=== PATIENT | female | born 1965 | race Caucasian/White ===

== ENCOUNTER 2017-03-04 08:40 | Inpatient (IN) | payer OTHER ==
[2017-02-14 14:10] VITALS: BMI 33.0
--- NOTE | 2017-02-14 14:40 | PAT Medication Instructions ---
Service Date Feb 14, 2017. Current Home Medication List Cyclobenzaprine Hcl (Flexeril), 10 MG PO BID PRN for RN Diclofenac (Voltaren), 75 MG PO HS Metoprolol Succinate (Toprol Xl), 50 MG PO HS Rizatriptan Benzoate (Maxalt), 10 MG PO UD PRN for RN Venlafaxine Hcl (Venlafaxine Hcl Er), 1 TAB PO HS [Hydrocodone-Apap], 1 TAB PO PRN Medication Instructions For Your Scheduled Surgery - Check with surgeon for instructions: Diclofenac (Voltaren), 75 MG PO HS - Hold the following medications the morning of surgery: Cyclobenzaprine Hcl (Flexeril), 10 MG PO BID PRN for RN - Take the following medications the morning of surgery with a sip of water: Rizatriptan Benzoate (Maxalt), 10 MG PO UD PRN for RN (if needed) [Hydrocodone-Apap], 1 TAB PO PRN (okay to take up to 4 hours prior to surgery if needed) - Take the following medications as scheduled the night before surgery: Venlafaxine Hcl (Venlafaxine Hcl Er), 1 TAB PO HS Rizatriptan Benzoate (Maxalt), 10 MG PO UD PRN for RN (if needed) Metoprolol Succinate (Toprol Xl), 50 MG PO HS Cyclobenzaprine Hcl (Flexeril), 10 MG PO BID PRN for RN (if needed) [Hydrocodone-Apap], 1 TAB PO PRN If you have any questions please call us at [phone] (Julia Hunt PA-C) or [phone] or [phone]
--- NOTE | 2017-02-14 15:39 | DIAGNOSTIC IMAGING REPORT ---
CHEST 2 VIEWS ROUTINE CLINICAL HISTORY: pat preoperative evaluation COMPARISON STUDY: 09/20/2013 FINDINGS: The bones soft tissues and hemidiaphragms are normal. The cardiomediastinal silhouette is normal. The lungs are clear. The pulmonary vasculature is normal. IMPRESSION: Negative chest. Electronically signed by: Shin Das M.D. 02/14/2017 3:37 PM Dictated Date/Time: 02/14/2017 3:36 PM
[2017-02-14 15:45] LABS: URINE APPEARANCE CLEAR (CLEAR); URINE BILIRUBIN NEG (NEG); URINE COLOR YELLOW; URINE NITRITE NEG (NEG); URINE PH 5.5 (4.5-7.5); URINE SPECIFIC GRAVITY 1.024 (1.000-1.030); UROBILINOGEN NEG (NEG)
[2017-02-14 15:46] LABS: MANUAL MICROSCOPIC REQUIRED? NO; REVIEW REQ? NO
[2017-02-14 15:49] LABS: BUN/CREATININE RATIO 13.4 (10-20); CALCIUM 8.7 mg/dl (8.5-10.1); CREATININE 0.82 mg/dl (0.60-1.20); POTASSIUM 3.9 mmol/L (3.5-5.1)
[2017-02-14 15:50] LABS: BASO % 0.6 %; BASO ABS # 0.03 K/uL (0-0.2); COMPLETE YES; EOS % 3.3 %; IG% 0.2 %; LYMPH % 41.7 %; LYMPH ABS # 2.03 K/uL (1.2-3.4); MEAN CELL VOLUME 94.1 fL (80-100); MEAN CORPUSCULAR HEMOGLOBIN 32.2 pg (25-34); MEAN CORPUSCULAR HGB CONC 34.3 g/dl (32-36); MEAN PLATELET VOLUME 10.7 fL (7.4-10.4); MONO % 8.8 %; NEUT % 45.4 %; PLATELET COUNT 265 K/uL (130-400); RED BLOOD COUNT 4.25 M/uL (4.2-5.4); WHITE BLOOD COUNT 4.87 K/uL (4.8-10.8)
[~2017-03-04] VITALS: Ht 162.6 cm; Wt 87.6 kg
[2017-03-04] VITALS (11 sets, daily range): BP systolic 128–158; BP diastolic 72–94; PULSE 84–112; TEMP 36.5–37.6; O2SAT 93–98; Ht 162.6 cm; Wt 87.6 kg
[~2017-03-04 08:40] MED LIST: CEFAZOLIN 2000 MG/60 ML D5W IV SCH; CYCL10TA6 PO; DICL-201 PO; HYDROCODONE-APAP PO; LACTATED RINGER'S 1000ML 1,000 ML IV SCH; METO-217 PO; RIZA10TA18 PO; VENL225T27 PO
[2017-03-04] MEDS ORDERED: FENTANYL CITRATE INJ 50 MCG/1 ML 2 ML VIAL ONE ×3 (10:43→12:44)
[2017-03-04] MEDS ORDERED: MIDAZOLAM HCL 1 MG/ML 2ML VIAL ONE (10:43)
--- NOTE | 2017-03-04 10:48 | History & Physical Bridge Note ---
H&P Re-Evaluation Bridge Note: I have examined the patient, reviewed the History & Physical and in the interval since the performance of the History & Physical I have noted the following changes of clinical significance: No changes noted
--- NOTE | 2017-03-04 10:49 | History and Physical ---
History & Physical Date March 04, 2017. Chief Complaint neck and arm pain History of Present Illness The patient is a 52 year old female with complaints of Additional History Hepatic Disease: No Endocrine Disorder: No Kidney Disease: No Hypertension: No Heart Disease: No Bleeding Tendencies: No Infectious Diseases: No Allergies Coded Allergies: Bupropion (Verified Allergy, Intermediate, ITCHINESS, 03/04/17) Home Medications Scheduled Diclofenac (Voltaren), 75 MG PO HS Metoprolol Succinate (Toprol Xl), 50 MG PO HS Venlafaxine Hcl (Venlafaxine Hcl Er), 1 TAB PO HS [Hydrocodone-Apap], 1 TAB PO PRN Scheduled PRN Cyclobenzaprine Hcl (Flexeril), 10 MG PO BID PRN for RN Rizatriptan Benzoate (Maxalt), 10 MG PO UD PRN for RN Physical Examination Skin: warm/dry, no rash Eyes: normal inspection, EOMI, sclerae normal ENT: normal ENT inspection, pharynx normal Head: normocephalic, atraumatic Neck: supple, no adenopathy, trachea midline Respiratory/Chest: lungs clear, normal breath sounds, no respiratory distress Cardiovascular: regular rate, rhythm, no edema, no murmur Abdomen / GI: normal bowel sounds, non tender Back: normal inspection Extremities: normal inspection, normal range of motion Neurologic/Psych: no motor/sensory deficits, alert, normal reflexes, oriented x 3 Diagnosis cervical spinal stenosis Plan of Treatment posterior cervical decompression and fusion C3-C5
[2017-03-04] MEDS ORDERED: ONDANSETRON INJ 2 MG/ML 2 ML VIAL IV PRN ×2 (11:00→13:15)
[2017-03-04] MEDS ORDERED: MoRPHine SULFATE 10 MG/ML CARP/VIAL IV PRN (11:00)
[2017-03-04] MEDS ORDERED: EpHEDrine SULFATE INJ 50 MG/ML AMP IV PRN (11:00)
[2017-03-04] MEDS ORDERED: ATROPINE SULFATE 0.1 MG/ML 5ML SYR IV PRN (11:00)
[2017-03-04] MEDS ORDERED: SODIUM CHLORIDE 0.9% PF 50 ML VIAL ONE (11:10)
[2017-03-04] MEDS ORDERED: BACITRACIN 50000 UNIT VIAL ONE (11:10)
[2017-03-04] MEDS ORDERED: THROMBIN FOR SOLN 20000 UNIT KIT ONE (11:17)
[2017-03-04] MEDS ORDERED: BUPIVACAINE/EPINEPHRINE 0.5% MPF 1:200,000 30 ML VIAL ONE (11:17)
[2017-03-04] MEDS ORDERED: HYDROmorphone INJ 2 MG/ML SYR/VIAL ONE ×2 (12:00→13:23)
--- NOTE | 2017-03-04 13:14 | [facility] Post Operative Brief Note ---
Immediate Operative Summary Operative Date March 04, 2017. Pre-Operative Diagnosis Cervical spinal stenosis Post-Operative Diagnosis Same as preoperative diagnosis Procedure(s) Performed C3-C5 Posterior Decompression/Laminectomy, C3-C5 Posterior Cervical Fusion with Lateral Mass Screw Fixation, Application of Bone Graft Allograft Surgeon Dr. Arden Harden Differential Specialist Surgeon(s) Gustavo Humphrey PA-C Estimated Blood Loss 200 mL Findings stenosis Specimens No pathology specimens per surgeon
[2017-03-04] MEDS ORDERED: RIZATRIPTAN BENZOATE 10 MG TAB PO PRN (13:15)
[2017-03-04] MEDS ORDERED: LORAZEPAM INJ 1 MG in SYRINGE 0.5 ML IV PRN (13:15)
[2017-03-04] MEDS ORDERED: LORAZEPAM 1 MG TAB PO PRN (13:15)
[2017-03-04] MEDS ORDERED: HYDROmorphone INJ 1 MG/ML SYR IV PRN (13:15)
[2017-03-04] MEDS ORDERED: ACETAMINOPHEN 500 MG TAB PO PRN (13:15)
[2017-03-04] MEDS ORDERED: DO NOT ADMINISTER PNEUMOCOCCAL VACCINE PRN ×2 (13:15)
[2017-03-04] MEDS ORDERED: DO NOT ADMINISTER FLU VACCINE PRN ×3 (13:15)
[2017-03-04] MEDS ORDERED: MAGNESIUM HYDROXIDE SUSP 30 ML UDC PO PRN (13:15)
[2017-03-04] MEDS ORDERED: LIDOCAINE HCL 2% 2 ML VIAL (20MG/ML) ONE (13:26)
[2017-03-04] MEDS ORDERED: PHENYLEPHRINE 100MCG/ML 5ML SYR ONE (13:26)
[2017-03-04] MEDS ORDERED: GLYCOPYRROLATE INJ 0.2 MG/ML VIAL ONE (13:26)
[2017-03-04] MEDS ORDERED: ROCURONIUM BROMIDE 10 MG/ML 5 ML VIAL ONE (13:26)
[2017-03-04] MEDS ORDERED: PROPOFOL IV EMULSION 10 MG/ML 20 ML VIAL IV ONE (13:26)
[2017-03-04] MEDS ORDERED: ESMOLOL HCL 10 MG/ML 10 ML VIAL ONE (13:26)
[2017-03-04] MEDS ORDERED: DEXAMETHASONE SOD INJ 4 MG/ML VIAL ONE (13:26)
[2017-03-04] MEDS ORDERED: NEOSTIGMINE METHYLSULFATE 1 MG/ML 10ML VIAL ONE (13:26)
[2017-03-04] MEDS ORDERED: ONDANSETRON INJ 2 MG/ML 2 ML VIAL ONE (13:26)
[2017-03-04] MEDS ORDERED: EpHEDrine SULFATE INJ 50 MG/ML AMP ONE (13:26)
[2017-03-04] MEDS ORDERED: HYDROmorphone INJ 2 MG/ML SYR/VIAL IV PRN (13:45)
[2017-03-04] MEDS: FENTANYL CITRATE INJ 50 MCG/1 ML 2 ML VIAL IV PRN ×2 (13:50→13:55)
--- NOTE | 2017-03-04 13:50 | DIAGNOSTIC IMAGING REPORT ---
Cervical spine CERVICAL 2 OR 3 VIEWS CLINICAL HISTORY: ACDF C3-C5 fusion TECHNIQUE: Image intensifier COMPARISON STUDY: None FINDINGS: Image intensifier was utilized for a mid cervical fusion-type procedure. IMPRESSION: Mid cervical spine fusion procedure Electronically signed by: Shin Das M.D. 03/04/2017 1:49 PM Dictated Date/Time: 03/04/2017 1:48 PM
--- NOTE | 2017-03-04 14:01 | OPERATIVE REPORT ---
DATE OF OPERATION: 03/04/2017 PREOPERATIVE DIAGNOSIS: Cervical spinal stenosis C3-4, C4-5. POSTOPERATIVE DIAGNOSIS: Same. PROCEDURE PERFORMED: 1. Posterior cervical decompression with laminectomy of C3 and C4. 2. Posterior spinal fusion C3-4, C4-5. 3. Placement of posterior segmental instrumentation using Globus rods and screws, C3-4, C4-5. 4. Placement of locally harvested morselized autograft posterior gutters. 5. Placement of Infuse collagen sponge combined with Mastergraft in the posterior gutters along the lateral masses. SURGEON: Dr. Arden Harden. EQUIPMENT OILER: Gustavo Humphrey PA-C. Due to the complex nature of the procedure, the entire surgery was performed with the perinatal breastfeeding assistant of Gustavo Humphrey PA-C. The school health assistant, under direct supervision, was involved in the actual performance of all aspects of the surgical procedure including hemostasis, tissue retraction and incision, instrument management, patient positioning, and wound closure. ANESTHESIA: General. DISPOSITION: The patient awakened and taken to PACU in stable condition. HISTORY OF PATIENT'S PROBLEMS: This is a 52-year-old female that presents with above-mentioned diagnosis. After failing an extensive course of nonoperative care, elected to undergo the above-mentioned procedure. Risks, benefits, pros, cons, and alternatives were outlined in detail preoperatively. OPERATION AND FINDINGS: PROCEDURE: The patient was met with preoperatively, the case discussed and all questions were addressed. At that point the patient was taken back to operative suite and after undergoing successful general intubation by the department of anesthesia was placed in prone position on Jose De Jesus table with chest pad, hip bolsters and a 3-prong Farr head sampler. All bony prominences were well padded and the eyes were inspected to ensure there was no external pressure placed upon them. At this point, the posterior cervical spine was prepped and draped in normal sterile fashion. Sharp dissection with the assistance of Bovie cautery was then performed down to and exposing the lamina and lateral masses of C3, 4 and 5 bilaterally. I then drilled and premeasured screws for C3, 4 and 5. After this was complete, I performed a complete laminectomy of 4 and 3 addressing stenosis at these levels. After this was complete, the appropriately premeasured sized lateral mass screws were placed in C3, 4 and 5 bilaterally and the rubin locked into position. The lateral masses and facets of 3, 4, and 5 were then burred to subcortical bleeding bone. Infuse collagen sponge combined with Mastergraft and locally harvested morcellized autograft was placed, 7 flat CEDRIC drain inserted. Incision was closed with 1-0 Vicryl in the fascia, 2-0 Vicryl subcutaneously, 4-0 Monocryl for final skin closure. Steri-Strips and sterile dressing placed. The patient was awakened and taken to PACU in stable condition. I attest to the content of the Intraoperative Record and any orders documented therein. Any exceptio ns are noted below.
[2017-03-04] MEDS: OXYCODONE HCL IR 5 MG TAB (IMMEDIATE RELEASE) PO PRN ×2 (15:23→19:20)
--- NOTE | 2017-03-04 15:34 | Anesthesiology Progress Note ---
Anesthesia Post Op Note Date & Time March 04, 2017 at 15:34 Vital Signs Vital Signs Past 12 Hours Date Time Temp Pulse Resp B/P Pulse Ox O2 Delivery O2 Flow Rate FiO2 03/04/17 15:12 36.8 106 16 143/86 98 Nasal Cannula 4.0 03/04/17 15:06 97 Nasal Cannula 4.0 03/04/17 15:04 37.6 108 16 131/75 97 Nasal Cannula 4.0 03/04/17 15:03 97 Nasal Cannula 4.0 03/04/17 14:25 110 18 144/78 96 Nasal Cannula 4 03/04/17 14:15 36.6 108 18 146/84 96 Nasal Cannula 4 03/04/17 14:05 108 16 123/68 98 Mask 5 03/04/17 13:55 106 16 150/52 100 Mask 10 03/04/17 13:44 36.5 84 16 152/91 98 Mask 10 03/04/17 09:08 36.9 84 16 143/94 98 Room Air Notes Mental Status: alert / awake / arousable, participated in evaluation Pt Amnestic to Procedure: Yes Nausea / Vomiting: adequately controlled Pain: adequately controlled Airway Patency, RR, SpO2: stable & adequate BP & HR: stable & adequate Hydration State: stable & adequate Anesthetic Complications: no major complications apparent
[2017-03-04] MEDS: LACTATED RINGER'S 1000ML 1,000 ML IV SCH (16:29)
[2017-03-04] MEDS: CEFAZOLIN IV 2,000 MG in DEXTROSE 5% 50ML 50 ML IV SCH (19:21)
[2017-03-04] MEDS: DOCUSATE SODIUM 100 MG CAP PO SCH (21:03)
[2017-03-04] MEDS: DEXAMETHASONE INJ 6 MG in SYRINGE 0 ML IV SCH (21:03)
[2017-03-04] MEDS: METOPROLOL SUCC 50MG EXT REL TAB PO SCH (21:03)
[2017-03-05] MEDS: LACTATED RINGER'S 1000ML 1,000 ML IV SCH (01:59)
[2017-03-05] MEDS: CEFAZOLIN IV 2,000 MG in DEXTROSE 5% 50ML 50 ML IV SCH ×2 (03:20→11:11)
[2017-03-05 03:32] VITALS: BP 144/81; PULSE 100; TEMP 37.3; O2SAT 94
[2017-03-05] MEDS: DEXAMETHASONE INJ 6 MG in SYRINGE 0 ML IV SCH ×2 (05:37→13:35)
[2017-03-05 07:21] VITALS: BP 143/82; PULSE 98; TEMP 37.1; O2SAT 93
[2017-03-05] MEDS: DOCUSATE SODIUM 100 MG CAP PO SCH ×2 (08:21→21:01)
[2017-03-05] MEDS ORDERED: RXC5 PO (10:14)
--- NOTE | 2017-03-05 10:14 | Discharge Instructions ---
Discharge Instructions Date of Service March 05, 2017. Admission Reason for Admission: Spinal Stenosis Discharge Discharge Diagnosis / Problem: cervical stenosis Discharge Goals Goal(s): Improve function Activity Recommendations Activity Limitations: per Instructions/Follow-up section . Instructions / Follow-Up Instructions / Follow-Up ACTIVITY RECOMMENDATIONS: SELF CARE INSTRUCTIONS AFTER CERVICAL FUSIONS 1. No smoking. Smoking drastically decreases the chance of a solid fusion. 2. No bending, lifting more than 5 pounds, or twisting (roll like a log when turning in bed). 3. You may shower 3 days after surgery. Thoroughly dry wound. Do not soak in the tub. 4. Cervical collar: Must be worn at all times including sleeping. You may remove the brace only to bath, eat and if you are sitting in a recliner. 5. Please walk as much as you can for exercise. Gradually increase the distance that you walk as your endurance increases. SPECIAL CARE INSTRUCTIONS: VERY IMPORTANT TO READ AND REVIEW A. Do not take any anti-inflammatory medications (i.e. Indocin, Advil, Aspirin, Naprosyn, Aleve, Motrin, etc.) as these may inhibit the chance of a solid fusion. Tylenol is okay to take. B. Your surgical incision has been closed with a cosmetic suture under the skin that will dissolve in about 6 weeks. In 14 days, you can use a pair of clean scissors and cut the suture that is left outside of the skin at the ends of your incision. C. Complications are uncommon, but please contact us if you have any signs or symptoms of: 1. wound infection (fever higher than 102.5 degrees F, redness, separation of wound, drainage, or increasing pain from the incision) 2. blood clots in legs (pain, swelling, redness and warmth in legs) 3. urinary tract infection (fever higher than 102.5 degrees, burning upon urination or increased frequency of urination) 4. nerve problems (inability to walk on your toes or heels, numbness, loss of bowel or bladder control) 5. any other symptoms that concern you. D. Please call the office at if you have any concerns or questions about your operation or recovery. MANAGING PAIN AFTER SPINAL SURGERY 1. Narcotic medication is intended for short-term use and will be provided for surgical pain. Surgical pain usually lasts for a period of 4-6 weeks. Narcotic medication includes Percocet, Vicodin, Darvocet, Tylenol #3 or Lortab. 2. Longer-term pain is more appropriately treated with non-narcotic medication such as Tylenol ES. 3. Muscle spasm is not appropriately treated with narcotics. Muscle relaxers such as Soma, Flexeril or Skelaxin can be used along with Tylenol ES. 4. Remember that we all live with some "aches and pains". This is not unusual or uncommon after an injury or as we get older. 5. We will provide appropriate medication within the normal guidelines of their prescribed use. We will also be very cautious and aware of potential abuse and extended duration of patients' medication needs. 6. Please allow 2-3 days to process refills. Prescriptions will not be mailed but must be picked up at the office. FOLLOW UP VISIT: Keep your scheduled follow-up appointment. Any questions, please call the office at . Current Hospital Diet Patient's current hospital diet: Regular Diet Discharge Diet Recommended Diet: Regular Diet Procedures Procedures Performed: C3-C5 Posterior Decompression/Laminectomy, C3-C5 Posterior Cervical Fusion with Lateral Mass Screw Fixation, Application of Bone Graft Allograft Pending Studies Studies pending at discharge: no Medical Emergencies . Who to Call and When: Medical Emergencies: If at any time you feel your situation is an emergency, please call 911 immediately. . Non-Emergent Contact Non-Emergency issues call your: Primary Care Provider . "Provider Documentation" section prepared by Arden Harden. . VTE Core Measure Inpt VTE Proph given/why not?: Farzaneh Land, SANA's
[2017-03-05] MEDS ORDERED: KETOROLAC TROMETHAMINE 30 MG/ML VIAL IV PRN (10:15)
--- NOTE | 2017-03-05 10:29 | PROGRESS NOTE ---
DATE: 03/05/2017 DATE: 03/05/2017. SUBJECTIVE: Postop day 1. Neck pain is controlled. Arm symptoms improved. Vital signs stable. T-max 37.3. CEDRIC drained 50 mL. OBJECTIVE: On exam, she is sitting up in bed, has good strength to testing, appears comfortable. ASSESSMENT: Status post posterior cervical decompression and fusion. PLAN: At this time, will maintain the CEDRIC drain another day. Anticipate possible home tomorrow.
[2017-03-05] MEDS: OXYCODONE HCL IR 5 MG TAB (IMMEDIATE RELEASE) PO PRN ×2 (11:07→22:34)
[2017-03-05 13:33] VITALS: BP 160/92; PULSE 107; TEMP 37.6; O2SAT 96
[2017-03-05 15:01] VITALS: BP 166/95; PULSE 108; TEMP 37.5; O2SAT 95
[2017-03-05] MEDS: METOPROLOL SUCC 50MG EXT REL TAB PO SCH (21:02)
[2017-03-05 23:19] VITALS: BP 172/95; PULSE 100; TEMP 36.7; O2SAT 95
[2017-03-06 04:17] VITALS: BP 163/95; PULSE 84; O2SAT 96
[2017-03-06] MEDS ORDERED: BISACODYL 10 MG SUPP PR PRN (06:00)
[2017-03-06] MEDS ORDERED: BISACODYL 5 MG TABEC PO PRN (06:00)
[2017-03-06 06:48] VITALS: BP 168/94; PULSE 72; TEMP 37.1; O2SAT 94
[2017-03-06] MEDS ORDERED: DOCUSATE SODIUM 100 MG CAP ONE (08:58)
[2017-03-06] MEDS: DOCUSATE SODIUM 100 MG CAP PO SCH (08:59)
[2017-03-06 12:44] VITALS: BP 168/94; PULSE 72; TEMP 37.1; O2SAT 94
[2017-03-06] MEDS: OXYCODONE HCL IR 5 MG TAB (IMMEDIATE RELEASE) PO PRN (13:30)
--- NOTE | 2017-03-06 14:57 | DISCHARGE SUMMARY ---
PRINCIPAL DIAGNOSIS: Cervical spinal stenosis. HOSPITAL COURSE: On 03/04/2017, the patient underwent posterior cervical decompression and fusion, tolerated this well and taken to the orthopedic floor postoperatively. Postop day #1, her pain was improved, ambulating well. Postoperative day #2, continued to progress nicely. Pain well controlled. CEDRIC drain is still somewhat significant. Subsequently, we elected to discharge her home with the drainage. She will follow up in my office on Tuesday for removal. Discharge orders and instructions found on the chart for further review.
[2017-03-07] MEDS ORDERED: POLYETHYLENE (MIRALAX) 17 GM PACK PO SCH (09:00)
== END 2017-03-06 13:43 | disposition home or self-care (01) | DRG 473 ==
LOC: ENRESERVDT → ENRESERVTM → C.ACU 08:40 → C.3E 10:30
PROVIDERS: ADMIT Orthopaedic Surgery Orthopaedic Surgery of the Spine; ATTEND Orthopaedic Surgery Orthopaedic Surgery of the Spine
PROC: 0RG10A1 (ICD-10-PCS; principal; 2017-03-04 10:55)
PROC: 0RG10J1 Fusion of Cervical Vertebral Joint with Synthetic Substitute, Posterior Approach, Posterior Column, Open Approach (ICD-10-PCS; principal; 2017-03-04 10:55)
DX: M48.02 Spinal stenosis, cervical region (principal)

== ENCOUNTER → 2017-06-02 | Outpatient (CLI) | payer OTHER ==
[~2017-06-02] MED LIST changes: -CEFAZOLIN 2000 MG/60 ML D5W IV SCH; -DICL-201 PO; -LACTATED RINGER'S 1000ML 1,000 ML IV SCH; +RXC5 PO
--- NOTE | 2017-06-02 16:33 | DIAGNOSTIC IMAGING REPORT ---
TEMPORAL ORB/SELLA/TEMP W/O CLINICAL HISTORY: SENSATION OF PLUGGED EAR, RT SIDE TECHNIQUE: Transaxial acquisition with multi axial reformatted images COMPARISON STUDY: None FINDINGS: Normal appearance of the temporal bone region. Mastoid air cells are clear. Semicircular canals are unremarkable. The external auditory canals are within normal limits. Tympanic membrane are unremarkable. There is minimal mucosal thickening of components of the right mastoid complex. There are no bony destructive changes. IMPRESSION: 1. Normal temporal bones. 2. Mild mucosal thickening of components of the right mastoid. The above report was generated using voice recognition software. It may contain grammatical, syntax or spelling errors. Electronically signed by: Shin Das M.D. 06/02/2017 4:32 PM Dictated Date/Time: 06/02/2017 4:18 PM
== END | disposition home or self-care (01) ==
LOC: C.CTS 16:06
PROVIDERS: ATTEND Physician Assistant
DX: H93.8X1 Other specified disorders of right ear (principal)

== ENCOUNTER 2021-04-17 07:28 | Inpatient (IN) ==
--- NOTE | 2021-03-31 09:32 | PAT Medication Instructions ---
Medication Instructions Date of Service March 31, 2021 Home Medications Medication Instructions Recorded hydrocodone 5 mg-acetaminophen 325 1 tab PO QID PRN #120 tab 01/14/20 mg tablet diclofenac sodium 75 mg 75 mg PO BID PRN #180 tab 07/10/20 tablet,delayed release metoprolol succinate 100 mg 100 mg PO PM #90 tab 10/14/20 tablet,extended release 24 hr venlafaxine 225 mg tablet,extended 225 mg PO PM #90 tab 01/26/21 release 24 hr hydrocodone 5 mg-acetaminophen 325 mg tablet 1 tab PO QID PRN diclofenac sodium 75 mg tablet,delayed release 75 mg PO BID PRN metoprolol succinate 100 mg tablet,extended release 24 hr 100 mg PO PM venlafaxine 225 mg tablet,extended release 24 hr 225 mg PO PM amlodipine 2.5 mg PO QPM ascorbic acid (vitamin C) [Vitamin C] 500 mg PO QAM cholecalciferol (vitamin D3) [Vitamin D3] 50 mcg PO QAM vitamin A 2,400 mcg PO QAM ASK your surgeon for instructions diclofenac sodium 75 mg tablet,delayed release 75 mg PO BID PRN DO NOT take the morning of surgery ascorbic acid (vitamin C) [Vitamin C] 500 mg PO QAM cholecalciferol (vitamin D3) [Vitamin D3] 50 mcg PO QAM vitamin A 2,400 mcg PO QAM Take morning of surgery With a small sip of water, OTHERWISE NOTHING TO EAT OR DRINK AFTER MIDNIGHT: hydrocodone 5 mg-acetaminophen 325 mg tablet 1 tab PO QID PRN (okay to take up to 4 hours prior to surgery if needed) Take evening before surgery hydrocodone 5 mg-acetaminophen 325 mg tablet 1 tab PO QID PRN (if needed) metoprolol succinate 100 mg tablet,extended release 24 hr 100 mg PO PM venlafaxine 225 mg tablet,extended release 24 hr 225 mg PO PM amlodipine 2.5 mg PO QPM Other Notes If you have any questions please call us at [phone] or [phone] or [phone] or [phone]
--- NOTE | 2021-04-03 10:40 | Anesthesiology Consultation ---
Date of Service April 03, 2021 Assessment & Plan (1) Encounter for pre-operative examination: - Abnormal preop CXR: Possible 13 mm nodule in the left lung base with recommendation for f/u chest CT. Surgeon arranging chest CT to be done prior to surgery. - COVID screening: Per assessment on 04/03: Travel screen negative, no known COVID-19 positive contacts or current COVID-19 related symptoms. Surgeon arranging preop COVID testing. Awaiting results. Chart Review Chart Review: Patient seen in Pre Admission Testing Teaching & Discussion Pre-Anesthesia Teaching/Discussion Notes: Instructed NPO after midnight before surgery,except medications with 15 cc of water. Medication instructions pr ovided according to the PAT guidelines. History Surgery Operation Date: 04/17/21 07:45 Proposed Procedures p L3-L5 Decompression Fusion, Spinal Cord Monitoring - Arden Harden DO Height/Weight Height: 5 ft 3.5 in Weight: 91.3 kg Allergies Allergy/AdvReac Type Severity Reaction Status Date / Time bupropion Allergy Intermediate Itchiness Verified 04/02/21 15:53 Medications Home Medications Medication Instructions Recorded Confirmed Last Taken hydrocodone 5 mg-acetaminophen 325 1 tab PO QID PRN #120 tab 01/14/20 03/23/21 Unknown mg tablet diclofenac sodium 75 mg 75 mg PO BID PRN #180 tab 07/10/20 03/23/21 Unknown tablet,delayed release metoprolol succinate 100 mg 100 mg PO PM #90 tab 10/14/20 03/23/21 Unknown tablet,extended release 24 hr venlafaxine 225 mg tablet,extended 225 mg PO PM #90 tab 01/26/21 03/23/21 Unknown release 24 hr amlodipine 2.5 mg PO QPM 03/23/21 03/23/21 Unknown ascorbic acid (vitamin C) [Vitamin 500 mg PO QAM 03/23/21 03/23/21 Unknown C] cholecalciferol (vitamin D3) 50 mcg PO QAM 03/23/21 03/23/21 Unknown [Vitamin D3] vitamin A 2,400 mcg PO QAM 03/23/21 03/23/21 Unknown Past Medical History Medical History Anxiety Benign essential hypertension Chronic back pain + neck Hearing deficit Hyperlipidemia No meds Hypertension Lumbar spinal stenosis + buttocks radiation Memory loss Migraine Exercise / Class Metabolic Activity II 4-5 Yardwork/Stairs/Walk up hill (one Flight of stairs (no chest pain, no sob)) Past Family History Family History Grandfather (Maternal) Diabetes Past Surgical History Surgical History Fusion of spine x4 (including ACDF > lateral ROM limitations) History of bilateral tubal ligation History of carpal tunnel release History of colonoscopy History of dilatation and curettage History of elbow surgery Right ulnar nerve History of tonsillectomy Past Anesthesia History No Hx of Anesthesia Complications and No Family Hx of Anesthesia Complications History of PONV No Hx of PONV and No Hx of Motion Sickness Social History Smoking Status: Never smoker Do You Dip or Chew Tobacco: No Hx Alcohol Use: Yes Alcohol type: hard liquor alcohol intake frequency: holidays/special occasions only Hx Substance Use: No Review of Systems Occasional snoring. No witnessed apnea events. Patient denies chest pain, shortness of breath, dyspnea on exertion, fever, chills, cough, wheezing, palpitations. Physical Exam Vital Signs VITALS BP 125/80 P 72 TEMP 98.5 SP02 99%RA RESP 16 PHYSICAL Significantly decreased cervical extension range of motion s/p ACDF Full TMJ range of motion. TMD 4 finger breaths Mallampati Score 3 Dentition: intact, + upper front tooth "repaired" Lungs: clear throughout to auscultation Cardiac: regular rate and rhythm, no murmurs noted Spine: normal Carotid arteries: negative bruit Extremities: no edema Lab Results Anesthesia Preop Results Results Anesthesia Widget: WBC 5.02 K/uL (4.8-10.8) 04/03/21 Hgb 13.6 g/dL (12.0-16.0) 04/03/21 Hct 40.4 % (37-47) 04/03/21 Plt 267 K/uL (130-400) 04/03/21 Na 140 mmol/L (136-145) 04/03/21 K 4.4 mmol/L (3.5-5.1) 04/03/21 Cl 105 mmol/L (98-107) 04/03/21 CO2 31 mmol/L (21-32) 04/03/21 BUN 15 mg/dl (7-18) 04/03/21 Creat 0.75 mg/dl (0.6-1.2) 04/03/21 Glucose Level 93 mg/dl (70-99) 04/03/21 PT 9.7 Seconds (9.0-12.0) 04/03/21 PTT 26.8 Seconds (21.0-31.0) 04/03/21 INR 1.0 (0.9-1.1) 04/03/21 TSH 0.72 uIU/mL (0.30-4.50) 02/06/21 Urine Color Yellow 04/03/21 Urine Appearance Clear (Clear) 04/03/21 Urine pH 5.5 (4.5-7.5) 04/03/21 Urine Specific [place] 1.011 (1.000-1.030) 04/03/21 Urine Protein Negative (Negative) 04/03/21 Urine Glucose (UA) Negative (Negative) 04/03/21 Urine Ketones Negative (Negative) 04/03/21 Urine Blood Negative (Negative) 04/03/21 Urine Nitrite Negative (Negative) 04/03/21 Urine Bilirubin Negative (Negative) 04/03/21 Urine Urobilinogen Negative (Negative) 04/03/21 Urine Leukocyte Esterase 3+ (Negative) H 04/03/21 Urine WBC (Auto) >30 /hpf (0-5) H 04/03/21 Urine RBC (Auto) 0-4 /hpf (0-4) 04/03/21 Urine Hyaline Casts (Auto) 5-10 /lpf (0-5) H 04/03/21 Urine Epithelial Cells (Auto) >30 /lpf (0-5) H 04/03/21 Urine Bacteria (Auto) Negative (Negative) 04/03/21 Blood Type A Positive 04/03/21 Antibody Screen NEGATIVE 04/03/21 Testing Electrocardiogram Date: 04/03/21 Normal sinus rhythm at 68 bpm. Diffuse minor nonspecific T wave abnormality. No significant change compared to 02/14/2017 per invisible braces orthodontist review. Chest X-Ray Date: 04/03/21 FINDINGS: Partially visualized cervical spinal fusion hardware. No pneumothorax. No pleural effusions. The right lung is clear. Possible 13 mm nodule the left lung base overlying the cardiac apex. No evidence for pulmonary edema. IMPRESSION: No acute process within the chest. Possible 13 mm nodule in the left lung base. Dedicated chest CT is recommended to exclude a pulmonary nodule.
[~2021-04-17 07:28] MED LIST changes: +ACETAMINOPHEN 500 MG TAB PO SCH; -CYCL10TA6 PO; +CeleBREX 200 MG CAP PO SCH; +GABAPENTIN 600 MG DOSE PO SCH; -HYDROCODONE-APAP PO; +LACTATED RINGER'S 1,000 ML IV SCH; +LR 500ML BOLUS, THEN 15ML/HR IV SCH; -METO-217 PO; -RIZA10TA18 PO; -RXC5 PO; -VENL225T27 PO; +ceFAZolin 2000MG 2,000 MG/15 ML SYR IV SCH
[2021-04-17] MEDS ORDERED: SUCCINYLCHOLINE CHLORIDE 20 MG/ML 10 ML VIAL IV ONE (08:07)
[2021-04-17] MEDS ORDERED: NEOSTIGMINE METHYLSULFATE 1 MG/ML 10ML VIAL ONE (08:07)
[2021-04-17] MEDS ORDERED: GLYCOPYRROLATE 0.2 MG/ML VIAL ONE (08:07)
[2021-04-17] MEDS ORDERED: fentaNYL citrate 100 MCG/2 ML VIAL ONE (08:07)
[2021-04-17] MEDS ORDERED: DEXAMETHASONE SOD INJ 4 MG/ML VIAL ONE (08:07)
[2021-04-17] MEDS ORDERED: PROPOFOL IV EMULSION 10 MG/ML 20 ML VIAL IV ONE (08:07)
[2021-04-17] MEDS ORDERED: CISATRACURIUM BESYLATE IV SOLN 2 MG/ML 10 ML VIAL IV ONE (08:07)
[2021-04-17] MEDS ORDERED: ONDANSETRON INJ 2 MG/ML 2 ML VIAL ONE (08:07)
--- NOTE | 2021-04-17 08:37 | History & Physical Bridge Note ---
Date of Service April 17, 2021 History & Physical Bridge Note I have examined the patient, reviewed the History & Physical and in the interval since the performance of the History & Physical I have noted the following changes of clinical significance: no changes noted
--- NOTE | 2021-04-17 08:38 | History & Physical Report ---
Date of Service April 17, 2021 Assessment & Plan (1) Neurogenic claudication due to lumbar spinal stenosis: Admission and Anticipated Discharge Date Admission Date: L3-L5 decompression fusion History of Present Illness Chief Complaint: Back and leg pain Primary Care Provider: Preet Williamson MD This is a 56-year-old female presents with back and bilateral leg pain. Failing course of nonoperative care is here for surgical intervention. Allergies Allergy/AdvReac Type Severity Reaction Status Date / Time bupropion Allergy Intermediate Itchiness Verified 04/17/21 08:03 Home Medications Medication Instructions Recorded Confirmed Type diclofenac sodium 75 mg 75 mg PO BID PRN #180 tab 07/10/20 04/17/21 Rx tablet,delayed release metoprolol succinate 100 mg 100 mg PO PM #90 tab 10/14/20 04/17/21 Rx tablet,extended release 24 hr venlafaxine 225 mg tablet,extended 225 mg PO PM #90 tab 01/26/21 04/17/21 Rx release 24 hr amlodipine 2.5 mg PO QPM 03/23/21 04/17/21 History ascorbic acid (vitamin C) [Vitamin 500 mg PO QAM 03/23/21 04/17/21 History C] cholecalciferol (vitamin D3) 50 mcg PO QAM 03/23/21 04/17/21 History [Vitamin D3] vitamin A 2,400 mcg PO QAM 03/23/21 04/17/21 History hydrocodone 5 mg-acetaminophen 325 1 tab PO QID PRN #120 tab 04/07/21 04/17/21 Rx mg tablet Past Med/Surg History Medical History (Updated 04/17/21 @ 08:38 by Arden Harden DO) Anxiety Benign essential hypertension Chronic back pain + neck Chronic pain syndrome Hearing deficit Hyperlipidemia No meds Hypertension Lumbar spinal stenosis + buttocks radiation Lung nodule seen on imaging study Memory loss Migraine Nodule of left lung Pre-op evaluation Surgical History Fusion of spine x4 (including ACDF > lateral ROM limitations) History of bilateral tubal ligation History of carpal tunnel release History of colonoscopy History of dilatation and curettage History of elbow surgery Right ulnar nerve History of tonsillectomy Family History Grandfather (Maternal) Diabetes Social History Smoking Status: Never smoker Second Hand Exposure: No; Do You Dip or Chew Tobacco: No; Hx Alcohol Use: Yes Alcohol type: hard liquor Hx Substance Use: No Preferred Language: Kittitian Communication Ability: Effective 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 Mill 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
[2021-04-17] MEDS ORDERED: BUPIVACAINE/EPINEPHRINE 0.5% MPF 1:200,000 30 ML VIAL ONE (08:42)
[2021-04-17] MEDS ORDERED: ePHEDrine sulfate 50 MG/ML AMP ONE (10:03)
[2021-04-17] MEDS ORDERED: PHENYLEPHRINE HCL 10 MG/ML VIAL ONE (10:03)
[2021-04-17] MEDS ORDERED: FLOSEAL HEMOSTATIC MATRIX 10ML TOP ONE ×2 (10:04→11:40)
[2021-04-17] MEDS ORDERED: FLUMAZENIL 0.1 MG/1 ML 10 ML VIAL IV PRN (10:20)
[2021-04-17] MEDS ORDERED: ATROPINE SULFATE 0.1 MG/ML 10ML SYR IV PRN (10:20)
[2021-04-17] MEDS ORDERED: NALOXONE HCL 0.4 MG/1 ML VIAL/CARP IV PRN ×2 (10:20→12:52)
[2021-04-17] MEDS ORDERED: LABETALOL HCL IV 5 MG/ML 20ML IV PRN (10:20)
[2021-04-17] MEDS ORDERED: HYDROmorphone INJ 1 MG/ML SYRINGE IV PRN ×2 (10:20→12:52)
[2021-04-17] MEDS ORDERED: fentaNYL citrate 100 MCG/2 ML VIAL IV PRN (10:20)
[2021-04-17] MEDS ORDERED: PROMETHAZINE HCL 12.5 MG in SODIUM CHLORIDE 0.9% 50 ML IV PRN ×2 (10:20→12:52)
[2021-04-17] MEDS ORDERED: ONDANSETRON INJ 2 MG/ML 2 ML VIAL IV PRN ×2 (10:20→12:52)
[2021-04-17] MEDS ORDERED: ePHEDrine sulfate 50 MG/ML AMP IV PRN (10:20)
--- NOTE | 2021-04-17 11:50 | Operative Report ---
Post Operative Report Pre & Post Diagnosis Operation Date: 04/17/21 09:15 Pre-Op Diagnosis: Spinal Stenosis, Lumbar Region with Neurogenic Post-Op Diagnosis: Spinal Stenosis, Lumbar Region with Neurogenic I identified the patient and participated in the time-out.: Yes Procedure Operation Date: 04/17/21 09:15 Actual Procedures #1 lumbar decompression with bilateral medial facetectomies and foraminotomies L2-3, L3-4 and L4-5. #2 posterior spinal fusion L3-4 L4-5. #3 placement posterior instrumentation L3-4 L4-5. #4 interbody fusion L3-4 L4-5. #5 placement peek cage 9 x 22 mm at L3-4 and 12 x 22 mm at L4-5. #6 placement locally harvested morselized autograft in the posterior gutters. #7 placement of I factor in the interbody space and combined with Vitoss in the posterior lateral gutters. Surgeon Arden Harden, DO Burglar Alarm Inspector None Estimated Blood Loss 850 Findings See Below The patient is 5 foot 3 inches tall weighing 90 kg with a BMI in excess of 34. This combined with an EBL of greater than 850 cc created significant technical difficulty. She required her deepest retractors longus instruments in order to perform her procedure. This at least 50% increase to the operative time. Specimens None Indications This is a 56-year-old female known to me the presents above-mentioned diagnosis after failing course of nonoperative care is here for the above-mentioned seizure. Description of Procedure Patient was met with identified informed consent obtained. Patient was then taken to the operative suite underwent ablation placed in a prone position the Jose De Jesus table top Bam frame. All bony prominences well-padded eyes inspected to ensure no external pressure placed upon the. This point the lumbar spine was prepped and draped in a sterile fashion. Sharp dissection with the assistance of Bovie cautery performed down to and exposing the lamina and transverse processes of L3 L4-5. From caudal cephalad fashion complete laminectomy of L4 L3 and partial laminectomy L2 was performed including bilateral medial facetectomies and foraminotomies addressing severe spinal stenosis as well as evidence of a massive facet cyst at L4-5 and the left. After complete decompression pedicle screws were placed in L3-L4-L5 bilaterally with assistance of fluoroscopy the proper sized rubin placed. Bilateral transforaminal approach left complete discectomy of L4-5 was performed endplates curetted to subcortically bone and a 12 x 22 mm peek cage filled with I factor tapped in position. Then proceeded to L3-L4 and again by way of a transforaminal portion left complete discectomy was performed endplates curetted to subcortically bone and a 9 x 22 mm peek cage filled I factor tapped in position. The rods were then compressed locked in final position bilaterally. The transverse processes of L3 L4-5 burred to subcortical bleeding bone. I factor combined with Vitoss and locally harvested morselized autograft placed in the posterior gutters. 15 round CEDRIC drain inserted. The incision was then closed with 1 Vicryl to fascia 2-0 Vicryl subcutaneously and 4 Monocryl for final skin closure. Steri-Strips dressings placed. Patient was awakened taken to PACU stable condition. Please note spinal cord monitoring was utilized at the procedure no changes noted. I attest to the content of the Intraoperative Record and any orders documented therein. Any exceptions are noted below.
[2021-04-17 12:00] LABS: iSTAT Creatinine 0.7 mg/dl (0.6-1.3); iSTAT Hemoglobin 12.6 g/dl (12.0-16.0); iSTAT Ionized Calcium 1.16 mmol/l (1.12-1.32); iSTAT Potassium 4.8 mmol/L (3.3-5.0)
--- NOTE | 2021-04-17 12:06 | Fluoroscopy Report ---
INTRAOPERATIVE RADIOGRAPHS CLINICAL HISTORY: L3-L5 spinal fusion. Fluoroscopy time: 22 seconds. FINDINGS: 2 spot fluoroscopic views of the lower lumbar spine are presented. There has been discectom y at L3-L4 and L4-L5 with laminectomy and posterior fusion from L3-L5. Interpedicular screws are pres ent at the levels. The orthopedic hardware appears intact. IMPRESSION: Intraoperative images from lumbar spinal fusion surgery as above. Electronically signed by: Preet Bowman M.D. 04/17/2021 12:04 PM
[2021-04-17 12:32] LABS: Hematocrit (blood only) 35.6 % (37-47); Hemoglobin 11.8 g/dL (12.0-16.0)
--- NOTE | 2021-04-17 12:38 | Anesthesiology Progress Note ---
Date of Service April 17, 2021 Anesthesia Post Procedure Vital Signs Vital Signs: Temp Pulse Pulse Resp BP BP Pulse Ox 04/17/21 12:35 36.2 C L 71 13 118/62 97 04/17/21 12:25 84 12 120/70 95 04/17/21 12:15 76 15 127/66 99 04/17/21 12:05 79 12 109/63 98 04/17/21 11:56 36.3 C L 95 H 14 115/67 100 04/17/21 08:00 36.7 C 81 18 151/93 H 98 Pain Intensity Bilateral Buttock: Pain Intensity: 1 Back: Pain Intensity: 3 Transfer of Care Handoff Completed per policy Notes Mental Status: alert / awake / arousable Patient Amnestic to Procedure: Yes Nausea / Vomiting: adequately controlled Pain: adequately controlled Airway Patency, RR, SpO2: stable & adequate BP & HR: stable & adequate Hydration State: stable & adequate Anesthetic Complications: no major complications apparent
[2021-04-17] MEDS ORDERED: SOD PHOSPHATE/SOD BIPHOSPHATE ENEMA 132 ML BTL PR PRN (12:52)
[2021-04-17] MEDS ORDERED: DO NOT ADMINISTER PNEUMOCOCCAL VACCINE PRN (12:52)
[2021-04-17] MEDS ORDERED: MAGNESIUM HYDROXIDE SUSP 30 ML UDC PO PRN (12:52)
[2021-04-17] MEDS ORDERED: ACETAMINOPHEN 1,000 MG/100 ML VIAL IV PRN (12:52)
[2021-04-17] MEDS ORDERED: hydrOXYzine HCl 25 MG TAB PO PRN (12:52)
[2021-04-17] MEDS ORDERED: DO NOT ADMINISTER FLU VACCINE PRN (12:52)
[2021-04-17] MEDS ORDERED: HYDROmorphone INJ 0.5 MG/0.5 ML SYR IV PRN (12:52)
[2021-04-17] MEDS ORDERED: ONDANSETRON 4 MG OD TAB PO PRN (12:52)
[2021-04-17] MEDS ORDERED: METOCLOPRAMIDE HCL INJ 5 MG/ML 2 ML VIAL IV PRN (12:52)
[2021-04-17] MEDS ORDERED: FAMOTIDINE 20 MG TAB PO PRN (12:52)
[2021-04-17] MEDS ORDERED: ALUMINUM/MAGNESIUM SUSP 30 ML UDC PO PRN (12:52)
[2021-04-17] MEDS ORDERED: LORazepam 0.5 MG/1 ML VIAL IV PRN (12:52)
[2021-04-17] MEDS ORDERED: LORazepam 0.5 MG TAB PO PRN (12:52)
[2021-04-17] MEDS ORDERED: traMADol HCL 50 MG TABLET PO PRN (12:52)
[2021-04-17] MEDS ORDERED: diphenhydrAMINE Capsule 25 MG CAP PO PRN (12:52)
[2021-04-17] MEDS: LACTATED RINGER'S 1,000 ML IV SCH ×2 (13:09→20:14)
[2021-04-17] MEDS: KETOROLAC 30 MG/ML VIAL IV SCH ×2 (14:26→20:15)
--- NOTE | 2021-04-17 16:04 | Hospitalist Consultation ---
Date of Consultation April 17, 2021 Assessment & Plan (1) Lumbar spinal stenosis: POD #0 - Pain control per primary team- reviewed tiered appropriate- Narcan available - Bowel regime appropriate - Drain per Primary team - [place] per primary team- should be able to remove tomorrow - SCD thigh high in place- chemoprophylaxis per primary team Receiving LR 125 Ml per hour postoperatively- will re-assess volume status tonight- appropriate for now. - CBC postoperatively HGB 11.8- follow in morning as you are - Reassess with any hemodynamic changes (2) Benign essential hypertension: Normally controlled 120-140 - Will hold Metoprolol 100 mg QPM- until euvolemic and hemodynamics proven stable - Amlodopine 2.5 mg - will leave for now- re-evaluate - Restart in morning as able (3) Hypercholesterolemia: Has been working with PCP with dietary modification (4) Headache, migraine: Controlled no abortive medications continue (5) Adjustment disorder in remission: Has had trial off venlafaxine- mood changed - Continue Venlafaxine 225 mg Supervising Physician Co-Signing Physician Notes Attending Attestation - Pt seen/examined, chart reviewed, care plan d/w KIMI Frank. I agree w/ the cary components of his documentation. 56yo female with HTN who presented today for elective lumbar back surgery by Dr Harden. Surgery went well however there was note of 850cc of EBL during the procedure. During my rounds she denied cp, dyspnea, abd pain, nausea. PMH/PSH/allergies/meds/sochx/famhx - reviewed VSS, BPs normal or low-normal since the OR gen - obese, NAD heart - RRR, s1 s2 lungs - CTA b/l abd - soft NT ext - no edema neuro - strength b/l legs 5/5 A/P: 1. s/p lumbar back surgery today. 2. EBL of 850cc - will need repeat CBC in am to exclude acute blood loss anemia. 3. potential for low BPs due to #2 - agree w/ Mr Frank's plan to hold her BP meds. repeat BMP am. Allen Christianson MD History of Present Illness Reason for Consultation: Medical management post operatively Requesting Physician: Arden Harden DO Attending Physician: Arden Harden DO History of Present Illness 56 YOF with past medical history of: Obesity, Hypertension, Migraine, Adjustment disorder, mixed hearing loss, cervical stenosis, lumbar spinal stenosis, lung nodule (followed by PCP-repeat scan). Patient is POD #0 from 1 lumbar decompression with bilateral medial facetectomies and foraminotomies L2-3, L3-4 and L4-5. #2 posterior spinal fusion L3-4 L4-5. #3 placement posterior instrumentation L3-4 L4-5. #4 interbody fusion L3-4 L4-5. #5 placement peek cage 9 x 22 mm at L3-4 and 12 x 22 mm at L4-5. #6 placement locally harvested morselized autograft in the posterior gutters. #7 placement of I factor in the interbody space and combined with Vitoss in the posterior lateral gutters. Patient was recovered in the PACU and is on her surgical floor recovering. Patient operative report reviewed. Patient is briskly awake and lying flat in her bed. She tolerated her lunch without any nausea and vomiting and pain is controlled at this time. Reviewed patient's medications and plan. Added: - Will hold evening dose of Metoprolol 100 mg for Hypertension- hold secondary to EBL and BP following postoperative - 100-110/60-70 - Can continue amlodipine 2.5 mg tonight - Continue LR- re-evaluate volume status Allergies Allergy/AdvReac Type Severity Reaction Status Date / Time bupropion Allergy Intermediate Itchiness Verified 04/17/21 08:03 Home Medications Medication Instructions Recorded Confirmed Type diclofenac sodium 75 mg 75 mg PO BID PRN #180 tab 07/10/20 04/17/21 Rx tablet,delayed release metoprolol succinate 100 mg 100 mg PO PM #90 tab 10/14/20 04/17/21 Rx tablet,extended release 24 hr venlafaxine 225 mg tablet,extended 225 mg PO PM #90 tab 01/26/21 04/17/21 Rx release 24 hr amlodipine 2.5 mg PO QPM 03/23/21 04/17/21 History ascorbic acid (vitamin C) [Vitamin 500 mg PO QAM 03/23/21 04/17/21 History C] cholecalciferol (vitamin D3) 50 mcg PO QAM 03/23/21 04/17/21 History [Vitamin D3] vitamin A 2,400 mcg PO QAM 03/23/21 04/17/21 History hydrocodone 5 mg-acetaminophen 325 1 tab PO QID PRN #120 tab 04/07/21 04/17/21 Rx mg tablet oxycodone 5 mg PO Q6H PRN #30 tab 04/18/21 Rx tramadol 50 mg PO Q6H PRN #30 tab 04/18/21 Rx ferrous gluconate 324 mg (37.5 mg 324 mg PO DAILY #30 tab 04/21/21 Rx iron) tablet Patient History Medical History Anxiety Benign essential hypertension Chronic back pain + neck Chronic pain syndrome Hearing deficit Hyperlipidemia No meds Hypertension Lumbar spinal stenosis + buttocks radiation Lung nodule seen on imaging study Memory loss Migraine Nodule of left lung Pre-op evaluation Surgical History Fusion of spine x4 (including ACDF > lateral ROM limitations) History of bilateral tubal ligation History of carpal tunnel release History of colonoscopy History of dilatation and curettage History of elbow surgery Right ulnar nerve History of tonsillectomy Family History Grandfather (Maternal) Diabetes Social History Smoking Status: Never smoker Second Hand Exposure: No; Hx Alcohol Use: Yes Alcohol type: hard liquor Hx Substance Use: No Preferred Language: [place] Communication Ability: Effective Applications Systems Analyst Required: No Beliefs That Will Affect Care: None marital status: Current Living Situation: Spouse current occupational status: employed 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 [employer] Feels Safe at Home: Yes Assistive Devices: Glasses and Walker Review of Systems Review of Systems: REVIEW OF SYSTEMS: Constitutional: No fever, sweats or chills Eyes: No diplopia, no worsening or blurred vision ENT: normal hearing, no trouble swallowing Respiratory: No cough, sputum, dyspnea at rest or on exertion Cardiovascular: No chest pain, tightness or palpitations Abdomen: No pain, nausea, vomiting, diarrhea or constipation Musculoskeletal: (+) postoperative pain, calf pain, swelling Neurologic: No weakness, numbness/tingling, Psychiatric: No anxiety or depression Skin: No rash or itch Physical Exam Physical Exam: PHYSICAL EXAM: General: awake, alert, no apparent distress Head: Normocephalic, atraumatic ENT: PERRL, EOMI, no pharyngeal exudate, mucous membranes moist Neuro: AAO x 3, speech clear and appropriate, strength intact bilaterally 5/5, sensation intact and equal all extremities and dermatomes, no pronator drift Chest: equal rise and fall of the chest, no accessory muscle use, no heaves or thrills, Clear to auscultation, on room air, Cardiac: Regular rate and rhythm, skin warm dry, cap refill <3 seconds, peripheral pulses +2 no JVD, no murmur, no edema GI: hypoactive bowel sounds throughout, soft, nontender to palpation, no rebound, guarding or tenderness : Spontaneously voiding, no pain, no CVA tenderness, Extremities: Normal inspection, no peripheral edema or erythema, calfs nontender to palpation Psych: Normal mood and affect Skin: no rash or erythema Results & Data Results & Data ([facility]) Vital Signs (Past 12 Hours) Vital Signs Temp Pulse Pulse Resp BP BP Pulse Ox 04/17/21 15:52 36.5 C 107 H 18 114/77 97 04/17/21 15:12 101 H 16 100/65 99 04/17/21 13:50 37.0 C 96 H 16 118/75 96 04/17/21 13:20 36.9 C 79 16 101/67 98 04/17/21 12:50 37.0 C 64 16 121/78 99 04/17/21 12:35 36.2 C L 71 13 118/62 97 04/17/21 12:25 84 12 120/70 95 04/17/21 12:15 76 15 127/66 99 04/17/21 12:05 79 12 109/63 98 04/17/21 11:56 36.3 C L 95 H 14 115/67 100 04/17/21 08:00 36.7 C 81 18 151/93 H 98 Laboratory Results Abnormal lab results 04/17/21 04/17/21 04/17/21 Range/Units 07:59 11:16 12:17 Hgb 11.8 L (12.0-16.0) g/dL Hct 35.6 L (37-47) % POC Glucose (other) 133 H (70-99) mg/dl Crossmatch See Detail Diagnostic Findings Lumbar Spine X-Ray 04/17/21 09:15 INTRAOPERATIVE RADIOGRAPHS CLINICAL HISTORY: L3-L5 spinal fusion. Fluoroscopy time: 22 seconds. FINDINGS: 2 spot fluoroscopic views of the lower lumbar spine are presented. There has been discectomy at L3-L4 and L4-L5 with laminectomy and posterior fusion from L3-L5. Interpedicular screws are present at the levels. The orthopedic hardware appears intact. IMPRESSION: Intraoperative images from lumbar spinal fusion surgery as above. Electronically signed by: Preet Bowman M.D. 04/17/2021 12:04 PM Medications Administered Hydromorphone HCl (Hydromorphone Inj 0.5 Mg/0.5 Ml Syr) 0.5 mg IV Q3H PRN PRN Reason: MOD pain (scale 4-6) & Pre PT Stop: 05/01/21 12:51 Last Admin: 04/17/21 13:09 Dose: 0.5 mg Documented by: [id number] Lactated Ringer's (Lr) 1,000 mls @ 150 mls/hr IV .Q6H40M CARMEL Stop: 05/17/21 12:51 Last Admin: 04/17/21 13:09 Dose: 150 mls/hr Documented by: [id number] Ketorolac Tromethamine (Ketorolac 30 Mg/Ml Vial) 30 mg IV Q6H CARMEL Stop: 04/18/21 08:01 Last Admin: 04/17/21 14:26 Dose: 30 mg Documented by: [id number] Discontinued Medications Acetaminophen (Acetaminophen 500 Mg Tab) 1,000 mg PO PREOP CARMEL Stop: 04/17/21 18:00 Last Admin: 04/17/21 08:30 Dose: 1,000 mg Documented by: [id number] Bupivacaine HCl/Epinephrine Bitart (Bupivacaine/Epinephrine 0.5% Mpf 1:200,000 30 Ml Vial) Confirm Administered Dose 30 ml .ROUTE .STK-MED ONE Stop: 04/17/21 08:43 Last Admin: 04/17/21 10:02 Dose: 30 ml Documented by: [id number] Cefazolin Sodium (Cefazolin 250 Mg/Ml 1 Gm Vial) Confirm Administered Dose 1,000 mg .ROUTE .STK-MED ONE Stop: 04/17/21 08:43 Last Admin: 04/17/21 10:03 Dose: 1,000 mg Documented by: [id number] Celecoxib (Celebrex 200 Mg Cap) 200 mg PO PREOP CARMEL Stop: 04/17/21 18:00 Last Admin: 04/17/21 08:31 Dose: 200 mg Documented by: [id number] Fentanyl Citrate (Fentanyl Citrate 100 Mcg/2 Ml Vial) 25 mcg IV Q5M PRN PRN Reason: PACU Use Only-Pain Stop: 04/17/21 18:20 Last Admin: 04/17/21 12:18 Dose: 25 mcg Documented by: [id number] Gabapentin (Gabapentin 600 Mg Dose) 600 mg PO PREOP CARMEL Stop: 04/17/21 18:00 Last Admin: 04/17/21 08:30 Dose: 600 mg Documented by: [id number] Lactated Ringer's (Lr) 1,000 mls @ 15 mls/hr IV .Q24H CARMEL Stop: 05/17/21 05:59 Last Infusion: 04/17/21 09:10 Dose: 0 mls/hr Documented by: [id number] Admin: 04/17/21 08:25 Dose: 15 mls/hr Documented by: [id number] Cefazolin Sodium (Ancef 2000mg) 2,000 mg in 15 mls @ 3.75 mls/min IV PREOP CARMEL; Protocol Stop: 04/17/21 18:00 Last Admin: 04/17/21 09:32 Dose: 3.75 mls/min Documented by: [id number] Miscellaneous ( Floseal Hemostatic Matrix 10ml) 30 ml TOP ONCE ONE Stop: 04/17/21 10:05 Last Admin: 04/17/21 11:29 Dose: 30 ml Documented by: [id number] Miscellaneous ( Floseal Hemostatic Matrix 10ml) 20 ml TOP ONCE ONE Stop: 04/17/21 11:41 Last Admin: 04/17/21 11:42 Dose: 10 ml Documented by: [id number] ECG Additional Comments: Reviewed from April 03, 2021- NSR no acute concerns PG Care Time/CCT Total # of Minutes Spent Total Time Spent with Patient: Total time spent is greater than 50% in coordination of care (as documented) at patient's floor/unit and/or counseling patient: Coding Level of Care Code 08182 Inpt Consult Level 4 Diagnoses Lumbar spinal stenosis M48.062 Neurogenic claudication status: with neurogenic claudication Benign essential hypertension I10 Hypercholesterolemia E78.00 Headache, migraine G43.909 Intractability: not intractable Migraine type: unspecified Status migrainosus presence: without status migrainosus Adjustment disorder in remission F43.20 (1) Lumbar spinal stenosis Neurogenic claudication status: with neurogenic claudication Qualified Code(s): M48.062 - Spinal stenosis, lumbar region with neurogenic claudication (2) Headache, migraine Intractability: not intractable Migraine type: unspecified Status migrainosus presence: without status migrainosus Qualified Code(s): G43.909 - Migraine, unspecified, not intractable, without status migrainosus
[2021-04-17] MEDS: ceFAZolin 2000MG 2,000 MG/15 ML SYR IV SCH (17:42)
[2021-04-17] MEDS: DOCUSATE SODIUM/SENNA 50/8.6MG TAB PO SCH (20:15)
[2021-04-17] MEDS: VENLAFAXINE HCL XR 75 MG CAPXR PO SCH (20:15)
[2021-04-17] MEDS ORDERED: amLODIPine BESYLATE 5 MG TAB PO SCH (21:00)
[2021-04-17] MEDS ORDERED: METOPROLOL SUCC 50MG EXT REL TAB PO SCH (21:00)
[2021-04-18] MEDS: ceFAZolin 2000MG 2,000 MG/15 ML SYR IV SCH (02:04)
[2021-04-18] MEDS: KETOROLAC 30 MG/ML VIAL IV SCH ×2 (02:04→08:54)
[2021-04-18] MEDS: LACTATED RINGER'S 1,000 ML IV SCH (02:11)
[2021-04-18] MEDS: POLYETHYLENE (MIRALAX) 17 GM PACK PO SCH ×4 (05:44→23:12)
--- NOTE | 2021-04-18 08:03 | Hospitalist Progress Note ---
Date of Service April 18, 2021 Assessment & Plan (1) Lumbar spinal stenosis: POD #1 s/p #1 lumbar decompression with bilateral medial facetectomies and foraminotomies L2-3, L3-4 and L4-5. #2 posterior spinal fusion L3-4 L4-5. #3 placement posterior instrumentation L3-4 L4-5. #4 interbody fusion L3-4 L4-5. #5 placement peek cage 9 x 22 mm at L3-4 and 12 x 22 mm at L4-5. #6 placement locally harvested morselized autograft in the posterior gutters. #7 placement of I factor in the interbody space and combined with Vitoss in the posterior lateral gutters. Pre-op h/h 13.6/40.4 Post-op 11.8/35.6 dropped to 9.1/28 -- acute blood loss anemia from surgery with EBL 850cc and dilutional from IVF ALEX output 290cc + 60cc so far. Asymptomatic at this time and will continue to monitor CBC in am and transfuse if needed Dexamethasone IV ordered PT/OT/bowel regimen per primary service SCDs for DVT prophylaxis Labs in AM (2) Benign essential hypertension: Normally controlled 120-140 BP 133/63 Continued on amlodipine 2.5mg. Resuming metoprolol today Continue to monitor (3) Hypercholesterolemia: Has been working with PCP with dietary modification (4) Headache, migraine: Controlled no abortive medications continue (5) Adjustment disorder in remission: Has had trial off venlafaxine- mood changed - Continue Venlafaxine 225 mg (6) DVT prophylaxis: SCDs Chemical contraindicated in back surgery Disposition: continued inpatient stay, possible d/c tomorrow if ALEX output slowed/CBC stable but anticipate likely to remain inpatient through weekend per primary service \\ Hospitalist service will chart check in AM/see if needed unless plans for d/c and medically stable. Please call with any questions/concerns. Admission and Anticipated Discharge Date Admission Date: April 17, 2021 Supervising Physician Co-Signing Physician Notes JUSTINE Supervision Note: I did not personally see or examine the patient today, but I verified all cary points of JUSTINE Diaz's assessment and plan with the following exceptions/additions: None Subjective Patient evaluated this afternoon. pain well controlled. She was worried about therapy this morning but got 1 dose 5mg oxycodone and states it went well. Alex emptied twice today and will continue to monitor. No CP, SOB, dizziness or lightheadedness, palpitations noted. Discussed if these occur notify RN sooner and will repeat CBC and transfuse if needed. No fever, chills, abdominal pain nausea or vomiting. Not passing gas or BM yet but states "I'm an at home kind of person". Discussed as long as passing gas and no pain should not delay discharge and that we have bowel regimen to help as well. Back/leg symptoms well improved. Questions/concerns addressed at this time. She is hopeful for d/c tomorrow or Tuesday pending labs. Review of Systems Review of Systems: All systems reviewed & are unremarkable except as noted in HPI & below Physical Exam Physical Exam: PHYSICAL EXAM: General: awake, alert, no apparent distress, sitting up in bed watching TV Head: Normocephalic, atraumatic ENT: PERRL, EOMI, no pharyngeal exudate, mucous membranes moist Neuro/MSK: AAO x 3, speech clear and appropriate, strength intact bilaterally 5/5, sensation intact and equal all extremities and dermatomes, no pronator drift. NVI, pulses palpable bilaterally with SCDs to B/L LE. strength equal b/l LE. ALEX drain with 50-60cc bloody drainage Resp: CTAB, on room air, no w/c/r Cardiac: Regular rate and rhythm, skin warm dry, cap refill <3 seconds, peripheral pulses +2 no JVD, no murmur, no edema GI: hypoactive bowel sounds throughout, soft, nontender to palpation, no rebound, guarding or tenderness : NO ALVAREZ Psych: Normal mood and affect Skin: no rash or erythema Results & Data Results & Data ([facility]) Vital Signs (Past 12 Hours) Vital Signs Temp Pulse Resp BP BP Pulse Ox 04/18/21 07:35 37.3 C 96 H 18 133/63 98 04/18/21 03:19 37.2 C 98 H 20 111/66 95 04/17/21 23:48 37.0 C 92 H 16 100/64 95 Laboratory Results 04/18/21 04/18/21 Range/Units 07:58 07:58 WBC 9.49 (4.8-10.8) K/uL RBC 2.86 L (4.2-5.4) M/uL Hgb 9.1 L (12.0-16.0) g/dL Hct 28.0 L (37-47) % MCV 97.9 (80-100) fL MCH 31.8 (25-34) pg MCHC 32.5 (32-36) g/dL RDW Std Deviation 45.7 (36.4-46.3) fL RDW Coeff of Cal 12.8 (11.5-14.5) % Plt Count 230 (130-400) K/uL MPV 10.1 (7.4-10.4) fL Immature Gran % (Auto) 0.3 % Neut % (Auto) 68.8 % Lymph % (Auto) 21.3 % [place] % (Auto) 9.3 % Eos % (Auto) 0.1 % Baso % (Auto) 0.2 % Neut # (Auto) 6.53 H (1.4-6.5) K/uL Lymph # (Auto) 2.02 (1.2-3.4) K/uL [place] # (Auto) 0.88 H (0.11-0.59) K/uL Eos # (Auto) 0.01 (0-0.5) K/uL Baso # (Auto) 0.02 (0-0.2) K/uL Immature Gran # (Auto) 0.03 H (0.00-0.02) K/uL Sodium 141 (136-145) mmol/L Potassium 4.5 (3.5-5.1) mmol/L Chloride 109 H (98-107) mmol/L Carbon Dioxide 30 (21-32) mmol/L Anion Gap 3.0 (3-11) BUN 16 (7-18) mg/dl Creatinine 0.77 (0.6-1.2) mg/dl Est Cr Clr Drug Dosing 87.7 ml/min Est GFR ( Amer) 100.0 ml/min Est GFR (Non-Af Amer) 86.3 ml/min BUN/Creatinine Ratio 20.4 H (10-20) Glucose 112 H (70-99) mg/dl Calcium 8.2 L (8.5-10.1) mg/dl Specimen Hemolysis PG Care Time/CCT Total # of Minutes Spent Total Time Spent with Patient: Total time spent is greater than 50% in coor dination of care (as documented) at patient's floor/unit and/or counseling patient: Coding Level of Care Code 57124 Subseq Hosp Care Lvl 2 Diagnoses Lumbar spinal stenosis M48.062 Neurogenic claudication status: with neurogenic claudication Benign essential hypertension I10 Hypercholesterolemia E78.00 Headache, migraine G43.909 Intractability: not intractable Migraine type: unspecified Status migrainosus presence: without status migrainosus Adjustment disorder in remission F43.20 DVT prophylaxis Z29.9 (1) Lumbar spinal stenosis Neurogenic claudication status: with neurogenic claudication Qualified Code(s): M48.062 - Spinal stenosis, lumbar region with neurogenic claudication (2) Headache, migraine Intractability: not intractable Migraine type: unspecified Status migrainosus presence: without status migrainosus Qualified Code(s): G43.909 - Migraine, unspecified, not intractable, without status migrainosus
[2021-04-18 08:22] LABS: Basophils # (auto) 0.02 K/uL (0-0.2); Basophils % (auto) 0.2 %; Eosinophils # (auto) 0.01 K/uL (0-0.5); Eosinophils % (auto) 0.1 %; Hemoglobin 9.1 g/dL (12.0-16.0); Immature Granulocytes # (auto) 0.03 K/uL (0.00-0.02); Immature Granulocytes % (auto) 0.3 %; Lymphocytes # (auto) 2.02 K/uL (1.2-3.4); Lymphocytes % (auto) 21.3 %; Mean Corpuscular Hemoglobin 31.8 pg (25-34); Mean Corpuscular Hgb Conc 32.5 g/dL (32-36); Mean Corpuscular Volume 97.9 fL (80-100); Mean Platelet Volume 10.1 fL (7.4-10.4); Monocytes # (auto) 0.88 K/uL (0.11-0.59); Monocytes % (auto) 9.3 %; Neutrophils # (auto) 6.53 K/uL (1.4-6.5); Neutrophils % (auto) 68.8 %; Platelet Count 230 K/uL (130-400); RDW Coefficient of Variation 12.8 % (11.5-14.5); RDW Standard Deviation 45.7 fL (36.4-46.3); Red Blood Count 2.86 M/uL (4.2-5.4); White Blood Count 9.49 K/uL (4.8-10.8)
--- NOTE | 2021-04-18 08:33 | Orthopedic Progress Note ---
Date of Service April 18, 2021 Assessment & Plan (1) Neurogenic claudication due to lumbar spinal stenosis: Admission and Anticipated Discharge Date Admission Date: April 17, 2021 This time we will continue physical therapy monitor CEDRIC operatively discharge home Tuesday or Tuesday Subjective Back pain controlled leg pain improved Physical Exam Physical Exam: Patient is in a chair at the bedside appears good strength testing. Appears comfortable. Results & Data ([facility]) Vital Signs (Past 12 Hours) Vital Signs Temp Pulse Resp BP BP Pulse Ox 04/18/21 07:35 37.3 C 96 H 18 133/63 98 04/18/21 03:19 37.2 C 98 H 20 111/66 95 04/17/21 23:48 37.0 C 92 H 16 100/64 95
[2021-04-18] MEDS: CHOLECALCIFEROL 1,000 UNITS 25 MCG TAB PO SCH (08:54)
[2021-04-18] MEDS: ASCORBIC ACID 500 MG TAB PO SCH (08:54)
[2021-04-18 08:58] LABS: BUN Creatinine Ratio 20.4 (10-20); Calcium 8.2 mg/dl (8.5-10.1); Creatinine Clr Calc Pharmacy 87.7 ml/min; Est GFR (Non-African American) 86.3 ml/min; Potassium 4.5 mmol/L (3.5-5.1)
[2021-04-18] MEDS ORDERED: NON-FORMULARY MEDICATION (Vitamin A 2,400 mcg Capsule) PO SCH (09:00)
[2021-04-18] MEDS: oxyCODONE HCL IR 5 MG TAB (IMMEDIATE RELEASE) PO PRN ×3 (09:02→23:24)
[2021-04-18] MEDS: DOCUSATE SODIUM/SENNA 50/8.6MG TAB PO SCH (19:33)
[2021-04-18] MEDS: VENLAFAXINE HCL XR 75 MG CAPXR PO SCH (19:33)
[2021-04-18] MEDS: ACETAMINOPHEN 500 MG TAB PO PRN (19:34)
[2021-04-19 05:43] LABS: Hematocrit (blood only) 27.8 % (37-47); Hemoglobin 8.9 g/dL (12.0-16.0); Mean Corpuscular Hemoglobin 31.8 pg (25-34); Mean Corpuscular Volume 99.3 fL (80-100); Platelet Count 220 K/uL (130-400); RDW Coefficient of Variation 12.9 % (11.5-14.5); White Blood Count 6.21 K/uL (4.8-10.8)
[2021-04-19 06:07] LABS: BUN Creatinine Ratio 18.2 (10-20); Calcium 7.6 mg/dl (8.5-10.1); Creatinine Clr Calc Pharmacy 116.5 ml/min; Est GFR (African American) 119.4 ml/min; Potassium 4.2 mmol/L (3.5-5.1)
[2021-04-19] MEDS: POLYETHYLENE (MIRALAX) 17 GM PACK PO SCH ×4 (06:19→21:19)
[2021-04-19 07:10] LABS: Iron 22 mcg/dl (35-150); Total Iron Binding Capacity 257 mcg/dl (250-450); Transferrin 175 mg/dl (200-360); Transferrin Percent Saturation 9 % (15-50)
[2021-04-19] MEDS: ASCORBIC ACID 500 MG TAB PO SCH (09:03)
[2021-04-19] MEDS: CHOLECALCIFEROL 1,000 UNITS 25 MCG TAB PO SCH (09:03)
[2021-04-19] MEDS: dexAMETHasone 8 MG in SYRINGE 0 ML IV SCH (09:04)
[2021-04-19] MEDS ORDERED: CALCIUM GLUCONATE 10% 1,000 MG in SODIUM CHLORIDE 0.9% 50 ML IV ONE (09:45)
--- NOTE | 2021-04-19 09:59 | Orthopedic Progress Note ---
Date of Service April 19, 2021 Assessment & Plan (1) Neurogenic claudication due to lumbar spinal stenosis: Admission and Anticipated Discharge Date Admission Date: April 17, 2021 At this time we will continue physical therapy monitor her CEDRIC output anticipate discharge home tomorrow. Subjective Back pain is controlled leg symptoms improved Physical Exam Physical Exam: On exam she appears comfortable. Is good strength testing. Results & Data ([facility]) Vital Signs (Past 12 Hours) Vital Signs Temp Pulse Resp BP BP Pulse Ox 04/19/21 07:00 36.8 C 100 H 18 126/80 96 04/18/21 23:13 37.4 C 94 H 12 129/80 94
[2021-04-19] MEDS: FERROUS SULFATE 325 MG TAB PO SCH (10:33)
--- NOTE | 2021-04-19 10:37 | Hospitalist Progress Note ---
Date of Service April 19, 2021 Assessment & Plan (1) Lumbar spinal stenosis: POD #2 s/p #2 lumbar decompression with bilateral medial facetectomies and foraminotomies L2-3, L3-4 and L4-5. #2 posterior spinal fusion L3-4 L4-5. #3 placement posterior instrumentation L3-4 L4-5. #4 interbody fusion L3-4 L4-5. #5 placement peek cage 9 x 22 mm at L3-4 and 12 x 22 mm at L4-5. #6 placement locally harvested morselized autograft in the posterior gutters. #7 placement of I factor in the interbody space and combined with Vitoss in the posterior lateral gutters. Pre-op h/h 13.6/40.4 Post-op 11.8 CEDRIC output 290cc + 195cc and slowing down this morning H/h 8.9/27.8 ---- acute blood loss anemia from surgery with EBL 850cc and dilutional from IVF as well as iron deficiency with iron low 24. Started oral supplementation and would continue for 2-3 months post-discharge. No sob/CP Asymptomatic at this time and will continue to monitor CBC in am and transfuse if needed Dexamethasone IV ordered Calcium 1gm ordered or low with corrected for albumin 8.4. Check Vit D level in AM PT/OT/bowel regimen per primary service SCDs for DVT prophylaxis Labs in AM (2) Benign essential hypertension: Normally controlled 120-140 BP 126/80 Continued on amlodipine 2.5mg, metoprolol (3) Hypercholesterolemia: Has been working with PCP with dietary modification (4) Headache, migraine: Controlled no abortive medications continue (5) Adjustment disorder in remission: Has had trial off venlafaxine- mood changed - Continue Venlafaxine 225 mg (6) DVT prophylaxis: SCDs Chemical contraindicated in back surgery Disposition: continued inpatient stay, possible d/c tomorrow if CEDRIC output slowed/CBC stable but anticipate likely to remain inpatient through weekend per primary service Admission and Anticipated Discharge Date Admission Date: April 17, 2021 Supervising Physician Co-Signing Physician Notes JUSTINE Supervision Note: I did not personally see or examine the patient today, but I verified all cary points of JUSTINE Diaz's assessment and plan with the following exceptions/additions: None Subjective Patient evaluated this morning. Little more pain today but controlled with ordered medications. Passing lots of gas, no BM yet. Up with therapy and did some steps but not as many as she had hoped. Back/leg symptoms controlled. CEDRIC output slowed. Had c-scope at 50, no bleeding. Discussed low iron and started on supplementation but can hold for tomorrow if no BM and resume once bowel function returns to normal but would continue for 2-3 months to improve stores. No fever, chills, chest pain, shortness of breath, abdominal pain, nausea or vomiting. Review of Systems Review of Systems: All systems reviewed & are unremarkable except as noted in HPI & below Physical Exam Physical Exam: PHYSICAL EXAM: General: awake, alert, no apparent distress, laying in bed resting upon entry to room Head: Normocephalic, atraumatic ENT: PERRL, EOMI, no pharyngeal exudate, mucous membranes moist Neuro/MSK: AAO x 3, speech clear and appropriate, strength intact bilaterally 5/5, sensation intact and equal all extremities and dermatomes, no pronator drift. NVI, pulses palpable bilaterally with SCDs to B/L LE. strength equal b/l LE. CEDRIC drain with 15cc bloody drainage Resp: CTAB, on room air, no w/c/r Cardiac: Regular rate and rhythm, skin warm dry, cap refill <3 seconds, peripheral pulses +2 no JVD, no murmur, no edema GI: +BS throughout, soft, nontender to palpation, no rebound, guarding or tenderness Psych: Normal mood and affect Skin: no rash or erythema Results & Data Results & Data ([facility]) Vital Signs (Past 12 Hours) Vital Signs Temp Pulse Resp BP BP Pulse Ox 04/19/21 07:00 36.8 C 100 H 18 126/80 96 04/18/21 23:13 37.4 C 94 H 12 129/80 94 Laboratory Results 04/19/21 04/19/21 04/19/21 Range/Units 05:21 05:21 05:21 WBC (4.8-10.8) K/uL RBC (4.2-5.4) M/uL Hgb (12.0-16.0) g/dL Hct (37-47) % MCV (80-100) fL MCH (25-34) pg MCHC (32-36) g/dL RDW Std Deviation (36.4-46.3) fL RDW Coeff of Cal (11.5-14.5) % Plt Count (130-400) K/uL MPV (7.4-10.4) fL Sodium 142 (136-145) mmol/L Potassium 4.2 (3.5-5.1) mmol/L Chloride 107 (98-107) mmol/L Carbon Dioxide 32 (21-32) mmol/L Anion Gap 3.0 (3-11) BUN 11 (7-18) mg/dl Creatinine 0.58 L (0.6-1.2) mg/dl Est Cr Clr Drug Dosing 116.5 ml/min Est GFR ( Amer) 119.4 ml/min Est GFR (Non-Af Amer) 103.0 ml/min BUN/Creatinine Ratio 18.2 (10-20) Glucose 107 H (70-99) mg/dl Calcium 7.6 L (8.5-10.1) mg/dl Iron 22 L 23 L (35-150) mcg/dl TIBC 257 (250-450) mcg/dl Transferrin 175 L (200-360) mg/dl Transferrin % Sat 9 L (15-50) % Albumin 3.0 L (3.4-5.0) gm/dl 04/19/21 Range/Units 05:21 WBC 6.21 (4.8-10.8) K/uL RBC 2.80 L (4.2-5.4) M/uL Hgb 8.9 L (12.0-16.0) g/dL Hct 27.8 L (37-47) % MCV 99.3 (80-100) fL MCH 31.8 (25-34) pg MCHC 32.0 (32-36) g/dL RDW Std Deviation 47.0 H (36.4-46.3) fL RDW Coeff of Cal 12.9 (11.5-14.5) % Plt Count 220 (130-400) K/uL MPV 10.0 (7.4-10.4) fL Sodium (136-145) mmol/L Potassium (3.5-5.1) mmol/L Chloride (98-107) mmol/L Carbon Dioxide (21-32) mmol/L Anion Gap (3-11) BUN (7-18) mg/dl Creatinine (0.6-1.2) mg/dl Est Cr Clr Drug Dosing ml/min Est GFR ( Amer) ml/min Est GFR (Non-Af Amer) ml/min BUN/Creatinine Ratio (10-20) Glucose (70-99) mg/dl Calcium (8.5-10.1) mg/dl Iron (35-150) mcg/dl TIBC (250-450) mcg/dl Transferrin (200-360) mg/dl Transferrin % Sat (15-50) % Albumin (3.4-5.0) gm/dl PG Care Time/CCT Total # of Minutes Spent Total Time Spent with Patient: Total time spent is greater than 50% in coordination of care (as documented) at patient's floor/unit and/or counseling patient: Coding Level of Care Code 62234 Subseq Hosp Care Lvl 3 Diagnoses Lumbar spinal stenosis M48.062 Neurogenic claudication status: with neurogenic claudication Benign essential hypertension I10 Hypercholesterolemia E78.00 Headache, migraine G43.909 Intractability: not intractable Migraine type: unspecified Status migrainosus presence: without status migrainosus Adjustment disorder in remission F43.20 DVT prophylaxis Z29.9 (1) Lumbar spinal stenosis Neurogenic claudication status: with neurogenic claudication Qualified Code(s): M48.062 - Spinal stenosis, lumbar region with neurogenic claudication (2) Headache, migraine Intractability: not intractable Migraine type: unspecified Status migrainosus presence: without status migrainosus Qualified Code(s): G43.909 - Migraine, unspecified, not intractable, without status migrainosus
[2021-04-19] MEDS: oxyCODONE HCL IR 5 MG TAB (IMMEDIATE RELEASE) PO PRN ×2 (11:40→20:16)
[2021-04-19] MEDS ORDERED: bisacodyL 10 MG SUPP PR PRN (11:51)
[2021-04-19] MEDS: DOCUSATE SODIUM/SENNA 50/8.6MG TAB PO SCH (20:17)
[2021-04-19] MEDS: VENLAFAXINE HCL XR 75 MG CAPXR PO SCH (20:17)
[2021-04-20] MEDS: POLYETHYLENE (MIRALAX) 17 GM PACK PO SCH ×2 (04:46→11:17)
[2021-04-20 06:21] LABS: Hematocrit (blood only) 27.8 % (37-47); Hemoglobin 9.2 g/dL (12.0-16.0); Mean Corpuscular Hemoglobin 32.5 pg (25-34); Mean Corpuscular Hgb Conc 33.1 g/dL (32-36); Mean Corpuscular Volume 98.2 fL (80-100); Platelet Count 257 K/uL (130-400); RDW Coefficient of Variation 12.6 % (11.5-14.5); RDW Standard Deviation 45.4 fL (36.4-46.3); Red Blood Count 2.83 M/uL (4.2-5.4); White Blood Count 10.64 K/uL (4.8-10.8)
[2021-04-20 06:59] LABS: BUN Creatinine Ratio 16.8 (10-20); Calcium 8.6 mg/dl (8.5-10.1); Creatinine Clr Calc Pharmacy 112.6 ml/min; Est GFR (African American) 118.1 ml/min; Est GFR (Non-African American) 101.9 ml/min
[2021-04-20] MEDS: ASCORBIC ACID 500 MG TAB PO SCH (08:14)
[2021-04-20] MEDS: dexAMETHasone 8 MG in SYRINGE 0 ML IV SCH (08:14)
[2021-04-20] MEDS: CHOLECALCIFEROL 1,000 UNITS 25 MCG TAB PO SCH (08:14)
[2021-04-20] MEDS: FERROUS SULFATE 325 MG TAB PO SCH (08:14)
--- NOTE | 2021-04-20 10:11 | Discharge Summary ---
Date of Service April 20, 2021 Admission HPI Per Admitting Provider This is a 56-year-old female presents with back and bilateral leg pain. Failing course of nonoperative care is here for surgical intervention. Principal Diagnosis Lumbar spinal stenosis with neurogenic claudication Discharge Data Allergies Allergy/AdvReac Type Severity Reaction Status Date / Time bupropion Allergy Intermediate Itchiness Verified 04/17/21 08:03 Consultations 04/17/21 12:52 Consult Hospitalist Routine Procedures Performed Operation Date: 04/17/21 09:15 Actual Procedures p L3-L5 Decompression and Fusion, with Spinal Cord Monitoring(Not Applicable) - Arden Harden DO Ordered Studies 04/17/21 09:15 FL lumbar spine 2-3V Routine Hospital Course (1) Neurogenic claudication due to lumbar spinal stenosis: Patient with lumbar decompression fusion tolerates well second orthopedic for postoperative. Postop day 1 she was up and ambulating well progressed to postop day #2 postoperative 3 CEDRIC drain decreased probably. Pain well controlled. Excellent strength testing. Subsequent discharge home. Total Time Total Time Spent Total Time Spent (In Minutes): 20 minutes Discharge Plan Discharge Items Patient Disposition: Home - Self-Care Reason For Visit: Spinal Stenosis, Lumbar Region with Neurogenic Discharge Diagnosis: Lumbar spinal stenosis with neurogenic claudication Activity: As commented below Non-emergency contact: Primary Care Provider Call non-emergency contact if: you have any medication questions Follow-up/Referrals: Preet Williamson MD [Primary Care Provider] - Diet: Regular Addtl Attending Provider Instructions: ACTIVITY RECOMMENDATIONS: SELF CARE INSTRUCTIONS AFTER THORACIC/LUMBAR FUSIONS 1. You may walk to your tolerance. It is good exercise for your legs and back. Expect some back and intermittent leg aches and pains. 2. You may perform "counter-top" level activities (make a sandwich, daniel with a project, etc.). 3. No bending or lifting of more than 10 pounds or back twisting of any nature (roll like a log when turning in bed). 4. You may ride in a car for 20-30 minutes at a time. No driving until after your first visit with your doctor. 5. Frequent changes of position and restricting sitting to 30 minutes at a time will help limit the amount of back spasms and stiffness you may experience. 6. You may discontinue the use of ambulatory aids (cane, crutches, etc.) once your strength and confidence allow. 7. You may intake assessor the shower and let water strike your incision when you arrive home at least once daily. Do not take a tub bath, sit in a hot tub or go into a swimming pool until after your first recheck in the office. SPECIAL CARE INSTRUCTIONS: VERY IMPORTANT TO READ AND REVIEW A. Your surgical incision has been closed with a cosmetic suture under the skin that will dissolve in about 6 weeks. In 14 days, you can use a pair of clean scissors and cut the suture that is left outside of the skin at the ends of your incision. 1. The small skin tapes can be removed 7 days after surgery if they have not fallen off by that point. 2. You may keep the wound open to air as much as possible to promote healing after post-op day number 5 unless told otherwise by your doctor. 3. If you think the wound looks like it is becoming infected (redness or worsening drainage) and/or you are experiencing fever, chill or worsening back pain and muscle spasms, contact the office so that we may evaluate you as soon as possible. B. Complications are uncommon, but please contact us if you have any signs or symptoms of: 1. wound infection (fever higher than 102.5 degrees F, redness, separation of wound, drainage, or increasing pain from the incision) 2. blood clots in legs (pain, swelling, redness and warmth in legs) 3. urinary tract infection (fever higher than 102.5 degrees F, burning upon urination or increased frequency of urination) 4. nerve problems (inability to walk on your toes or heels, numbness, loss of bowel or bladder control) 5. any other symptoms that concern you C. Please call the office at if you have any concerns or questions about your operation or recovery. D. No smoking! Smoking drastically decreases the chance of a solid fusion. E. Do not take any anti-inflammatory medications (Indocin, Advil, Motrin, Aspirin, Naprosyn, etc.) as these may inhibit the chance of a solid fusion. Tylenol is okay to take for pain. MANAGING PAIN AFTER SPINAL SURGERY 1. Narcotic medication is intended for short-term use and will be provided for surgical pain. Surgical pain usually lasts for a period of 4-6 weeks. Narcotic medication includes Percocet, Vicodin, Darvocet, Tylenol #3 or Lortab. 2. Longer-term pain is more appropriately treated with non-narcotic medication such as Tylenol ES. 3. Muscle spasm is not appropriately treated with narcotics. Muscle relaxers such as Soma, Flexeril or Skelaxin can be used along with Tylenol ES. 4. Remember that we all live with some "aches and pains". This is not unusual or uncommon after an injury or as we get older. a. Back pain is expected and may include muscle spasms for 4 to 6 weeks after surgery. The pain should gradually improve. If the pain worsens for no apparent reason, please contact the office. b. Intermittent leg pain may also be experienced and should not be concerned about unless it worsens for no apparent reason. If so, please contact the office. 5. We will provide appropriate medication within the normal guidelines of their prescribed use. We will also be very cautious and aware of potential abuse and extended duration of patients' medication needs. a. Pain medications are for your comfort and to assist with sleep and rest so that the tissue can heal. They are not provided in order to return to normal activity and should not be used through the day. To do so or worsening pain at night can result from ongoing tissue damage and development of tolerance to the prescribed medicine. 6. Please allow 2-3 days to process refills. Prescriptions will not be mailed but must be picked up at the office. FOLLOW UP VISIT: Keep your scheduled follow-up appointment. Any questions, please call the office at . Pending Studies at Discharge: No Stand-Alone Forms: My [facility], Smoking Cessation Medications and [place] Order Prescriptions: New oxycodone 5 mg tablet 5 mg PO Q6H PRN (Reason: pain, severe) Qty: 30 RF: 0 tramadol 50 mg tablet 50 mg PO Q6H PRN (Reason: pain, moderate) Qty: 30 RF: 0 Continued diclofenac sodium 75 mg tablet,delayed release (DR/EC) 75 mg PO BID PRN (Reason: pain) Qty: 180 RF: 1 venlafaxine 225 mg tablet extended release 24hr 225 mg PO PM Qty: 90 RF: 3 hydrocodone-acetaminophen 5-325 mg tablet 1 tab PO QID PRN (Reason: pain) Qty: 120 RF: 0 metoprolol succinate 100 mg tablet extended release 24 hr 100 mg PO PM Qty: 90 RF: 3 amlodipine 2.5 mg tablet 2.5 mg PO QPM RF: 0 vitamin A 2,400 mcg Capsule 2,400 mcg PO QAM RF: 0 ascorbic acid (vitamin C) [Vitamin C] 500 mg Capsule, Extended Release 500 mg PO QAM RF: 0 cholecalciferol (vitamin D3) [Vitamin D3] 50 mcg (2,000 unit) Capsule 50 mcg PO QAM RF: 0 Discharge Orders: Discharge Order (Routine); Ordered 04/20/21 Ordered By: Arden Harden Admission Data Admit Date/Time: 04/17/21 11:57 Attending Provider: Arden Harden Admit Provider: Arden Harden Primary Care Provider: Preet Williamson Other Providers: Allen Sánchez
[2021-04-20] MEDS: ACETAMINOPHEN 500 MG TAB PO PRN (14:05)
== END 2021-04-20 15:00 | disposition home or self-care (01) | DRG 454 ==
LOC: ASU 07:28 → 3E 11:57
DX: I10 Essential (primary) hypertension; G43.909 Migraine, unspecified, not intractable, without status migrainosus; F43.20 Adjustment disorder, unspecified; E66.9 Obesity, unspecified; E78.00 Pure hypercholesterolemia, unspecified; Z68.34 Body mass index [BMI] 34.0-34.9, adult; Z79.899 Other long term (current) drug therapy; Z98.1 Arthrodesis status; M48.062 Spinal stenosis, lumbar region with neurogenic claudication; D62 Acute posthemorrhagic anemia; Z88.8 Allergy status to other drugs, medicaments and biological substances